=== PATIENT | male | born 1950 | race Caucasian/White ===

== ENCOUNTER → 2021-02-11 07:49 | Outpatient (CLI) | payer MEDICARE, SELFPAY ==
[2021-02-11 08:03] LABS: Basophils % 0.7 % (0.1-2.0); Eosinophils # 0.4 K/mm3 (0.0-0.4); Eosinophils % 5.9 % (0.1-12.0); Hematocrit 46.1 % (42.0-52.0); Hemoglobin 15.8 g/dL (14.1-18.0); Lymphocytes # 1.6 K/mm3 (0.7-4.5); Lymphocytes % 25.2 % (10-50); Mean Corpuscular HGB Conc 34.4 g/dL (31.8-35.4); Mean Corpuscular Hemoglobin 30.2 pg (27.0-31.2); Mean Platelet Volume 8.8 fl (7.4-10.4); Monocytes # 0.5 K/mm3 (0.1-1.0); Monocytes % 7.6 % (1.7-9.3); Neutrophils # 3.8 K/mm3 (1.8-7.8); Neutrophils % 60.6 % (37.0-80.0); Platelet Count 169 K/mm3 (142-424); Red Blood Count 5.24 M/mm3 (4.60-6.20); Red Cell Distribution Width 15.2 % (11.5-17.5); White Blood Count 6.3 K/mm3 (4.8-10.8)
[2021-02-11 08:22] LABS: Hemoglobin A1C 5.7 % (4.0-6.0)
[2021-02-11 08:43] LABS: Chloride 103 mmol/L (98-107)
[2021-02-11 08:44] LABS: Potassium 4.9 mmoL/L (3.5-5.1); Sodium 143 mmol/L (136-145)
[2021-02-11 08:46] LABS: Alanine Aminotransferase 34 U/L (12-78); Anion Gap 14.9 mEq/L (5-15); Aspartate Amino Transferase 35 U/L (17-59); Blood Urea Nitrogen 12 mg/dl (9-20); Carbon Dioxide 30 mmol/L (22.0-30.0); Estimated Glomerular Filt Rate 74 ml/min (>60); GFR (African American) 90 ML/MIN (>60)
[2021-02-11 08:47] LABS: Albumin Level 4.3 g/dl (3.5-5.0); Albumin/Globulin Ratio 1.7 (1.1-1.8); Alkaline Phosphatase 119 U/L (38-126); Bilirubin,Total 0.5 mg/dl (0.2-1.3); Calcium 9.5 mg/dl (8.4-10.2); Chol/HDL Ratio 3.7 (1-3.5); Cholesterol 146 mg/dl (140-200); Globulin 2.5 g/dL (1.3-3.2); Glucose 120 mg/dl (74-100); HDL Cholesterol 39 mg/dl (40-60); Total Protein,Serum 6.8 g/dl (6.3-8.2); Triglycerides 290 mg/dl (30-150); VLDL Cholesterol 58 mg/dL (0-40)
[2021-02-11 08:58] LABS: Direct LDL Cholesterol 64.95 mg/dL (100-129)
== END ==
PROVIDERS: Visit Provider Nurse Practitioner Family
DX: Z01.89 Encounter for other specified special examinations (principal); E11.9 Type 2 diabetes mellitus without complications; Z79.84 Long term (current) use of oral hypoglycemic drugs
CPT/HCPCS: 36415; 80053; 80061; 83036; 85025

== ENCOUNTER → 2021-08-06 08:12 | Outpatient (CLI) | payer MEDICARE, OTHER, SELFPAY | PROVIDERS: PCP Nurse Practitioner Family; Visit Provider Thoracic Surgery (Cardiothoracic Vascular Surgery) | DX: Z01.812 Encounter for preprocedural laboratory examination (principal); Z11.52 Encounter for screening for COVID-19; M96.89 Other intraoperative and postprocedural complications and disorders of the musculoskeletal system | CPT/HCPCS: C9803; U0003; U0005 ==

== ENCOUNTER → 2021-12-15 07:49 | Outpatient (CLI) | payer MEDICARE, OTHER, SELFPAY ==
[2021-12-15 09:36] LABS: Chloride 103 mmol/L (98-107); Potassium 5.1 mmoL/L (3.5-5.1); Sodium 138 mmol/L (136-145)
[2021-12-15 09:39] LABS: Alanine Aminotransferase 31 U/L (12-78); Albumin/Globulin Ratio 1.8 (1.1-1.8); Alkaline Phosphatase 111 U/L (38-126); Anion Gap 8.1 mEq/L (5-15); Aspartate Amino Transferase 37 U/L (17-59); Bilirubin,Total 0.5 mg/dl (0.2-1.3); Blood Urea Nitrogen 15 mg/dl (9-20); Carbon Dioxide 32 mmol/L (22.0-30.0); Cholesterol 144 mg/dl (140-200); Estimated Glomerular Filt Rate 83 ml/min (>60); GFR (African American) 101 ML/MIN (>60); Globulin 2.2 g/dL (1.3-3.2); Total Protein,Serum 6.2 g/dl (6.3-8.2); Triglycerides 273 mg/dl (30-150); VLDL Cholesterol 55 mg/dL (0-40)
[2021-12-15 09:40] LABS: Calcium 9.5 mg/dl (8.4-10.2); Chol/HDL Ratio 4.1 (1-3.5); Glucose 123 mg/dl (74-100); HDL Cholesterol 35 mg/dl (40-60)
[2021-12-15 09:50] LABS: Direct LDL Cholesterol 59.85 mg/dL (100-129)
== END ==
PROVIDERS: PCP Nurse Practitioner Family; Visit Provider Internal Medicine Cardiovascular Disease
DX: I25.10 Atherosclerotic heart disease of native coronary artery without angina pectoris (principal)
CPT/HCPCS: 36415; 80053; 80061

== ENCOUNTER 2024-04-15 09:07 | Day surgery (SDC) | payer MEDICARE, OTHER, SELFPAY ==
[2024-04-09 13:37] VITALS: BMI 29.2
[2024-04-15 10:08] VITALS: BP 120/78; PULSE 97; RESP 16; TEMP 36.7; O2SAT 97
[2024-04-15 10:29] VITALS: O2SAT 95
--- NOTE | 2024-04-15 10:31 | P.PNANES_ITS ---
[facility] Disclaimer: The information contained in this section may have been updated after the patient was seen, as this information can be updated by other users. Medical History Pre-diabetes Hyperlipemia Hypertension Surgical History Hx of heart artery stent Hx of CABG Family History Other Family history of myocardial infarction Social History Smoking Status: Former smoker alcohol intake: current alcohol intake frequency: holidays/special occasions only substance use type: denies use current occupational status: retired Travel in the last 8 weeks: None household members: spouse housing: house [facility] Anesthesia Checklist Patient Identification Patient Identification: Arm Band and Verbal (Name & ) Structural Data Admitted From: Home Planned Operative Procedure/s: Colonoscopy Consent for Planned Operative Procedure(s) Verified: Yes Verified Documents: Surgical Consent and History and Physical NPO Status Verified Time NPO: 00:00 Additional verifications Anesthesia Reactions: No Airway Assessment Mallampati Score:: Class III C-Spine Mobility Assessed: Yes TMJ Mobility Assessed: Yes Dentition: Poor Dentition Neurological Assessment Level of Consciousness: Awake Hx Seizures: No Numbness or tingling in extremities: No Anesthesia Plan Anesthesia Risk discussed: Yes Anesthesia Plan: Verified ASA Class: III Anesthesia Type: MAC
--- NOTE | 2024-04-15 10:34 | P.HP_ITS ---
History of Present Illness *Admission Date: 04/15/24 *Reason for visit:: Screening *History of present illness: Mr. Marshall is a 74-year-old gentleman who is here for screening for colon cancer. His last colonoscopy was 10 years ago.. The examination is deemed medically necessary for colonoscopy. The patient has been seen, interviewed and examined prior to the procedure by both myself and the anesthesia provider. [facility] Disclaimer: The information contained in this section may have been updated after the patient was seen, as this information can be updated by other users. Medical History Pre-diabetes Hyperlipemia Hypertension Surgical History Hx of heart artery stent Hx of CABG Family History Other Family history of myocardial infarction Social History Smoking Status: Former smoker alcohol intake: current alcohol intake frequency: holidays/special occasions only substance use type: denies use current occupational status: retired Travel in the last 8 weeks: None household members: spouse housing: house Other Medical History Have you received the Pneumonia Vaccine: Yes Review of Systems Review of Systems Review of systems (narrative): Negative *Cardiovascular Comments: Negative *Gastrointestinal Comments: Negative *Genitourinary Comments: Negative *Musculoskeletal Comments: Negative *Neurologic Comments: Negative Meds Home Medications and Allergies Home Medications ?Medication ?Instructions ?Recorded ?Confirmed ?Type allopurinol 100 mg tablet 100 mg PO DAILY 02/26/21 04/15/24 History aspirin 81 mg tablet,delayed 81 mg PO DAILY 02/26/21 04/15/24 History release metoprolol tartrate 75 mg tablet 50 mg PO BID 02/26/21 04/15/24 History rosuvastatin 40 mg tablet 40 mg PO DAILY 02/26/21 04/15/24 History tamsulosin 0.4 mg capsule 0.4 mg PO DAILY 02/26/21 04/15/24 History metformin 500 mg tablet,extended See Rx Instructions .Route 12/03/21 04/15/24 Rx release 24 hr .COMPLEX #90 tabs New Prescriptions to Start Prescriptions: Allergies Allergy/AdvReac Type Severity Reaction Status Date / Time No Known Allergies Allergy Verified 04/15/24 10:04 Exam Data for Last 24 hours Vital signs and Labs for Last 24 Hours: Temp Pulse Resp BP Pulse Ox O2 Del Method O2 Flow Rate 98.1 F 97 H 16 120/78 97 Nasal Cannula 5 04/15/24 10:08 04/15/24 10:08 04/15/24 10:08 04/15/24 10:08 04/15/24 10:08 04/15/24 10:29 04/15/24 10:29 *Routine HEENT Exam Head: Present normocephalic Eye: Present EOMI and PERRL ENT: Present mucous membranes moist *Routine Neck Exam Neck: Present supple *Routine Respiratory Exam Respiratory: Present CTA bilaterally *Routine Cardiovascular Exam Cardiovascular: Present RRR *Routine Abdominal Exam Abdominal: Present soft and normoactive bowel sounds; Absent tenderness *Routine Rectal Exam Rectal:: deferred *Routine Genitalia Exam Genitalia:: deferred *Routine Extremities Exam Extremities: Absent cyanosis, clubbing or edema *Routine Skin Exam Skin: Present warm; Absent rash *Routine Neurological Exam Neurological: Present alert and oriented X3 Assessment and Plan *Assessment and plan (1) Screening for colon cancer: Status: Acute Category: Medical Code(s): Z12.11 - Encounter for screening for malignant neoplasm of colon Plan A/P: 1. Screening for colon cancer is the preprocedural diagnosis. The patient will be anesthetized/sedated using MAC sedation. The patient has been seen and examined. Cardiac and lung assessment prior to the examination is stable. Proceed with planned colonoscopy
--- NOTE | 2024-04-15 10:41 | HMH.PROCNOTE ---
[facility] Procedure Note Date: 04/15/24 Time: 11:12 Procedure Note:: Colonoscopy Procedure Report: Colonoscopy with snare cautery, Endo Clip and cold snare polypectomy Endoscopist: Win Vera II, MD Referring physician: MARY Veloz Date of Procedure: April 15, 2024 Equipment: Olympus 190 variable stiffness pediatric colonoscope Sedation: MAC sedation Indication: Mr. Marshall is a 73-year-old gentleman who is here for screening colonoscopy. His last colonoscopy was more than 10 years ago. He reports no abdominal pain, weight loss, change in his bowel habits or rectal bleeding. He reports no family history of colon cancer. Procedure: Prior to the procedure, a history and physical exam was performed, and patient's medications and allergies were reviewed. The risks, benefits and alternatives of the sedation and procedure were discussed with the patient. All questions were answered and informed consent was obtained. The patient was brought to the procedure room. Patient identification and proposed procedure were verified by the physician and the nurse. The patient was placed in a left lateral decubitus position and the scope was passed under direct vision. Throughout the procedure, the patient's blood pressure, pulse, and oxygen saturations were monitored continuously. The colonoscopy was accomplished without difficulty. The patient tolerated the procedure well. Findings: On digital rectal examination there was normal rectal tone. There were no external hemorrhoids. The prostate was slightly enlarged 2-3+, smooth, soft, symmetric without nodules. The colonoscope was introduced through the anal canal to the rectum and advanced to the cecum. The ileocecal valve and appendiceal orifice were identified. The scope was advanced a short distance into the ileum which appeared grossly normal. The scope was then withdrawn into the colon. There were a total of 10 polyps (cecum x 2 (3 and 6 mm), transverse x 1 (5 mm), descending x 4 (4, 5, 5 and 6 mm) and sigmoid x 2 (at 27 cm from pectinate a 21 to 22 mm pedunculated polyp and at 20 cm from pectinate, 11 mm pedunculated polyp). The smaller proximal polyps were removed via cold snare polypectomy. The 2 sigmoid polyps were removed via snare cautery. Because of the thickened stalcks and potential for post polypectomy bleeding, 2 endoclips were placed over the polypectomy stalk of the proximal sigmoid polyp and 1 Endo Clip was placed over the stalk of the distal sigmoid polyp. There were scattered diverticuli throughout the descending and sigmoid colon (LEFT colon). The rectum itself was normal. Upon retroflexion within the rectum there were grade 2 internal hemorrhoids. The preparation was excellent throughout with Roma Preparation Score of 9. The cecal time was 19 minutes. Impression: 1. 21-22 mm pedunculated sigmoid polyp (at 27 cm from pectinate line) 2. 11 mm pedunculated sigmoid polyp (at 20 cm from pectinate line) 3. 7 additional diminutive colonic polyps 4. Left-sided diverticulosis 5. Grade 2 internal hemorrhoids Plan: I will follow-up the polyp histology and recommend repeat surveillance colonoscopy again in 1 to 2 years based upon the pathology. I would encourage psyllium bulking fiber supplementation on a maintenance basis.
[2024-04-15 10:45] LABS: POC Glucose,Bedside 109 (70-110)
[2024-04-15 11:13] VITALS: BP 116/68; PULSE 94; RESP 18; TEMP 36.2; O2SAT 94
[2024-04-15 11:23] VITALS: BP 109/69; PULSE 87; RESP 18; O2SAT 95
[2024-04-15 11:33] VITALS: BP 112/56; PULSE 87; RESP 18; O2SAT 94
[2024-04-15 11:43] VITALS: BP 129/78; PULSE 83; RESP 18; O2SAT 97
== END 2024-04-15 11:43 | disposition home or self-care (01) ==
PROVIDERS: PCP Nurse Practitioner Family; Visit Provider Internal Medicine Gastroenterology
PROC: 0DJD8ZZ Inspection of Lower Intestinal Tract, Via Natural or Artificial Opening Endoscopic (ICD-10-PCS; CPT 45378; principal; 2024-04-15 11:00)
DX: K63.5 Polyp of colon (principal); K57.30 Diverticulosis of large intestine without perforation or abscess without bleeding; K64.1 Second degree hemorrhoids; Z12.11 Encounter for screening for malignant neoplasm of colon; R73.03 Prediabetes
CPT/HCPCS: 45385; 82962; 88305

== ENCOUNTER 2025-05-15 07:04 | Outpatient (CLI) | payer MEDICARE, OTHER, SELFPAY ==
--- OUTSIDE RECORDS SUMMARY | 2025-04-17 09:32 | XMS_ITS | Encounter Summary ---
Author Organization Healthcare Address [address] [place] [address] Care Team Providers Care Alcoholism Worker Name Role Phone Mihir Abdalla MD Unavailable [phone] Mart Jackson APRN Primary Care Provider [phone] Reason for Referral * Imaging (Routine) - Closed Specialty Diagnoses / Procedures Referred By Nette guerrero Referred To Contact Radiology Diagnoses Elevated prostate specific antigen (PSA) Procedures MR Prostate w and wo IV Contrast Silver Esparza MD [address] [address] Phone: tel: fax: Referral ID Status Reason Start Date Expiration Date Visits Re quested Visits Authorized [id number] Closed 02/27/2025 08/29/2026 1 1 Reason for Visit * Imaging (Routine) - Closed Specialty Diagnoses / Procedures Referred By Nette guerrero Referred To Contact Radiology Diagnoses Elevated prostate specific antigen (PSA) Procedures MR Prostate w and wo IV Contrast Silver Esparza MD [address] [address] Phone: tel: fax: Referral ID Status Reason Start Date Expiration Date Visits Re quested Visits Authorized [id number] Closed 02/27/2025 08/29/2026 1 1 Encounter Details Date Type Department Care Team (Latest Contact Info) Description 04/17/2025 10:32 AM EDT - 04/17/2025 11:59 PM EDT Hospital Encounter [facility] [address] [place] [address] Elevated prostate specific antigen (PSA) Discharge Disposition: Home or Self Care Social History Tobacco Use Types Packs/Day Years Used Date Smoking Tobacco: Former Cigarettes 2.5 50 0 02/11/1970 - 02/12/2020 Smokeless Tobacco: Never Alcohol Use Standard Drinks/Week Comments Yes 0 (1 standard drink = 0.6 oz pur e alcohol) Couple bourbons a week Sex and Gender Information Value Date Recorded Sex Assigned at Male 07/08/2021 8:58 AM EST Legal Sex Male 7:53 PM EDT Gender Identity Male 07/08/2021 8:58 AM EST Sexual Orientation Straight 07/08/2021 8: 58 AM EST Occupation Industry Job Start Date Job End Date retired Not on file Not on file Not on file documented as of this encounter Medications at Time of Discharge allopurinol (Zyloprim) 100 MG tablet 1 (one) time each day. 01/30/2020 aspirin 81 MG chewable tablet Chew 81 mg 1 (one) time each day. metFORMIN (Glucophage) 500 MG tablet Take 500 mg by mouth 1 (one) time each day. Multiple Vitamin (MULTIVITAMINS PO) 1 (one) time each day. 01/30/2020 oxyCODONE (Roxicodone) 5 MG immediate release tablet Take 1 tablet (5 mg total) by mouth every 4 (four) hours if needed for severe pain for up to 18 doses. 18 tablet 08/12/2021 rosuvastatin (Crestor) 40 MG tablet 1 (one) time each day. 01/30/2020 tamsulosin (Flomax) 0.4 MG 24 hr capsule TAKE 1 CAPSULE Daily 03/10/2020 documented as of this encounter Plan of Treatment Not on file documented as of this encounter Procedures Procedure Name Priority Date/Time Associated Diagnosis Comments MR PROSTATE W AND WO IV CONTRAST Routine 04/17/2025 12:16 PM EDT Elevated prostate specific antigen (PSA) documented in this encounter Results * MR Prostate w and wo IV Contrast (04/17/2025 12:16 PM EDT) Anatomical Region Laterality Modality Abdomen Magnetic Resonan ce Impressions 04/17/2025 4:18 PM EDT Overall PI-RADS category: 4. A 14 mm lesion in the right apex anterior peripheral zone. CRITICAL RESULT: No. COMMUNICATION: Per this written report. PI-RADSR v2.1 Assessment Categories ----- PIRADS 1 Very low (clinically significant cancer is highly unlikely to be present) PIRADS 2 Low (clinically significant cancer is unlikely to be present) PIRADS 3 Intermediate (the presence of clinically significant cancer is equivocal) PIRADS 4 High (clinically significant cancer is likely to be present) PIRADS 5 Very high (clinically significant cancer is highly likely to be present) Preliminary report signed by Sunny Evangelista DO on 04/17/2025 3:40 PM By electronically signing this report, I, the attending physician, attest that I have personally reviewed the images/data for the above examination(s) and agree with the final edited report. Drafted by Sunny Evangelista DO on 04/17/2025 1:19 PM Final report signed by Miryam De MD on 04/17/2025 4:18 PM Narrative 04/17/2025 4:18 PM EDT CLINICAL INDICATION: Elevated PSA. PSA reportedly 6.8. TECHNIQUE: Multiplanar, multisequence imaging of the pelvis in accordance with PI-RADS recommendations before and after intravenous administration of mL Gadavist in the left antecubital fossa at 2.0 ml/sec on a 3.0 T platform using a 18-channel external phased array coil. Dedicated three-plane small FOV ROMIE T2; axial diffusion weighted imaging with b-values 50 and 800 s/mm2 used to generate calculated z=6213 s/mm2 and ADC map; and an acquired high b =1400 s/mm2; axial 3D dynamic contrast-enhanced [id number] imaging with <10 sec temporal resolution were acquired using 3 mm slice thickness in addition to full-pelvis pre contrast T1 ROMIE and post-contrast axial and coronal fat suppressed 3D Gradient echo T1-weighted imaging. Advanced 3D workstation manipulation and review of the data set was performed by the interpreting physician, at an independent workstation, to further define anatomy and possible pathology. Images of areas of interest were created utilizing various techniques. These images were saved and transferred to PACS if significant. COMPARISON: MR prostate 02/17/2025, which is severely degraded due to motion and rectal contrast FINDINGS: Size: 4.5 x 2.9 x 3.2 cm with a volume of 18.8 cubic cm PSA Density: 0.31 Quality: Adequate, mild geometric distortion on diffusion-weighted imaging from rectal distention does not compromise diagnostic confidence Hemorrhage: No Peripheral zone: Heterogeneous with hypointense T2 signal likely representing confluent prostatitis. Focal finding as below. Transition zone: Mild heterogeneity with typical and atypical BPH nodules. No focal finding. Lesion #1: Location: right anterior peripheral zone just LATERAL to the anterior fibromuscular stroma on series 5 image 26, measuring 14 mm. T2: Moderately hypointense, circumscribed and possibly lenticular without extraprostatic extension T2 PI-RADS category: 4 DWI: Markedly hyperintense on high b-value DWI and markedly hypointense on ADC without extraprostatic extension DWI PI-RADS category: 4 DCE: Focal early enhancement, positive Prostate margin: None Lesion overall PI-RADS category: 4 Neurovascular bundles: Not involved Seminal Vesicles: Not involved Lymph Nodes: No lymphadenopathy. Bones: Heterogeneous and predominantly fat replaced bone marrow. Other pelvic organs: Colonic diverticulosis. Normal bladder wall. Procedure Note Miryam De MD - 04/17/2025 CLINICAL INDICATION: Elevated PSA. PSA reportedly 6.8. TECHNIQUE: Multiplanar, multisequence imaging of the pelvis in accordance withPI-RADS recommendations before and after intravenous administration of mLGadavist in the left antecubital fossa at 2.0 ml/sec on a 3.0 T platformusing a 18-channel external phased array coil. Dedicated three-plane smallFOV ROMIE T2; axial diffusion weighted imaging with b-values 50 and 800s/mm2 used to generate calculated f=9583 s/mm2 and ADC map; and anacquired high b =1400 s/mm2; axial 3D dynamic contrast-enhanced [id number] with <10 sec temporal resolution were acquired using 3 mm slicethickness in addition to full-pelvis pre contrast T1 ROMIE and post- contrastaxial and coronal fat suppressed 3D Gradient echo T1-weighted imaging. Advanced 3D workstation manipulation and review of the data set wasperformed by the interpreting physician, at an independent workstation, tofurther define anatomy and possible pathology. Images of areas of interestwere created utilizing various techniques. These images were saved andtransferred to PACS if significant. COMPARISON: MR prostate 02/17/2025, which is severely degraded due to motion and rectalcontrast FINDINGS: Size: 4.5 x 2.9 x 3.2 cm with a volume of 18.8 cubic cm PSA Density: 0.31 Quality: Adequate, mild geometric distortion on diffusion-weighted imagingfrom rectal distention does not compromise diagnostic confidence Hemorrhage: No Peripheral zone: Heterogeneous with hypointense T2 signal likelyrepresenting confluent prostatitis. Focal finding as below. Transition zone: Mild heterogeneity with typical and atypical BPHnodules. No focal finding. Lesion #1: Location: right anterior peripheral zone just LATERAL to the anteriorfibromuscular stroma on series 5 image 26, measuring 14 mm. T2: Moderately hypointense, circumscribed and possibly lenticular withoutextraprostatic extension T2 PI-RADS category: 4 DWI: Markedly hyperintense on high b-value DWI and markedly hypointense onADC without extraprostatic extension DWI PI-RADS category: 4 DCE: Focal early enhancement, positive Prostate margin: None Lesion overall PI-RADS category: 4 Neurovascular bundles: Not involved Seminal Vesicles: Not involved Lymph Nodes: No lymphadenopathy. Bones: Heterogeneous and predominantly fat replaced bone marrow. Other pelvic organs: Colonic diverticulosis. Normal bladder wall. IMPRESSION: Overall PI-RADS category: 4. A 14 mm lesion in the right apex anteriorperipheral zone. CRITICAL RESULT: No. COMMUNICATION: Per this written report. PI-RADSR v2.1 Assessment Categories ----- PIRADS 1 Very low (clinically significant cancer is highly unlikely to bepresent) PIRADS 2 Low (clinically significant cancer is unlikely to be present) PIRADS 3 Intermediate (the presence of clinically significant cancer isequivocal) PIRADS 4 High (clinically significant cancer is likely to be present) PIRADS 5 Very high (clinically significant cancer is highly likely to bepresent) Preliminary report signed by Sunny Evangelista DO on 04/17/2025 3:40 PM By electronically signing this report, I, the attending physician, attestthat I have personally reviewed the images/data for the aboveexamination(s) and agree with the final edited report. Drafted by Sunny Evangelista DO on 04/17/2025 1:19 PM Final report signed by Miryam De MD on 04/17/2025 4:18 PM us Silver Esparza MD IMG MRI PROCEDURES Final Res ult documented in this encounter Visit Diagnoses Diagnosis Elevated prostate specific antigen (PSA) documented in this encounter Administered Medications Inactive Administered Medications - up to 3 most recent administrations Medication Order MAR Action Action Date Dose Rate Site gadobutrol (Gadavist) injection 9.3 mL 9.3 mL (0.1 mL/kg 93 kg Order-specific weight), Intravenous, Once in imaging, 1 dose, Starting on Courtney 04/17/25 at 1057, Until Courtney 04/17/25 at 1216, Routine, Imaging Protocol Orders Given 04/17/2025 12:16 PM EDT 9.3 mL Right Antecubital documented in this encounter Additional Health Concerns Assessment Noted Time A fall risk assessment has been complete d for the patient 08/19/2021 9:10 AM EST documented as of this encounter Care Teams Alcoholism Worker Relationship Specialty Start Date End Date Mart Jackson APRN [address] [place] [address] PCP - General 08/11/21 Mihir Abdalla [facility] [place] [address] Referring Physician Cardiology 04/01/21 documented as of this encounter
--- OUTSIDE RECORDS SUMMARY | 2025-05-15 07:07 | XMS_ITS | Data Portability ---
Author Organization [facility] Address [address] [place] [address] Assessment Encounter Date Assessment Date Assessment LastModified by Organization Details LastModified Time 12/06/2024 12/06/2024 Patient presente d to office today for their Medicare Annual Wellness Visit. Education was provided on healthy nutrition, including a diet rich in fruits and vegetables, minimizing simple carbohydrates, salt, and saturated fats. Encouraged regular cardiovascular exercise such as walking at least 30 minutes daily, 5 times per week. Emphasized preventive health measures and educated pt on fall prevention and community-based lifestyle interventions to help reduce health risks and promote healthy living. Medicare Preventive Services Check List reviewed and printed for patient. [email or web address] Not available 12/06/2024 10:39:47 Plan of Treatment Reminders Order Date Submit Date Provider Last Modified By Organization Details Last Modified Time Details Appointments None recorded. Lab HbA1c (hemoglobin A1c), blood 2024 025 [facility], [address], Tobias [address], [place], [address], 11:07:43 CMP, serum or plasma 2024 025 [facility], [address], [place] [address], [place], [address], 5 11:07:40 CBC w/ auto diff 2024 025 [facility], [address], [place] [address], [place], [address], 5 11:07:40 microalbumi n/creatinin e, mass ratio, urine 2024 025 [facility], [address], [place] F, [place], [address], 5 11:07:42 lipid panel, serum 2024 025 [facility], [address], [place] [address], [place], [address], 5 11:07:41 PSA, serum or plasma 2024 025 [facility], [address], [place]ias [address], [place], [address], 5 11:07:43 hepatitis B surface Ab, qualitative , serum 2024 025 [facility], [address], Tobias F, [place], [address], 5 11:07:44 Hepatitis C IgG Ab, qual, serum 2024 025 [facility], [address], [place] [address], [place], [address], 5 11:07:42 HbA1c (hemoglobin A1c), blood 2023 024 [facility], [address] [facility], [place], [address], 4 15:09:17 Referral general surgeon referral - CT pelvis has been ordered at [facility] 2024 025 [facility] , [address], [place], [address], 5 14:48:31 Procedures None recorded. Surgeries None recorded. Imaging CT, abdomen + pelvis, w/o contrast 2024 025 [facility] ([facility]), [address], [place], [address], 15:00:16 Medication Orders benzonatate 100 mg capsule 2024 025 [facility], [address] [place] [address] [address] [place], [id number], 16:04:34 azithromyci n 250 mg tablet 2024 025 [facility], [address] [place] [address] [address] [place], [id number], 16:04:34 metformin ER 500 mg tablet,exte nded release 24 hr 2023 024 [facility], [address] [place] [address], [address], 15:09:55 Patient TargetsNo targets recorded. Patient Instructions Encounter Date Encounter Id Patient Instructions Last Modified By Organization Details Last Modified Time 03/29/2024 [id number] skin tag removal : care instructions efryman Not available 03/29/2024 15:09:14 12/06/2024 [id number] advance directives: care instructions efryman Not available 12/06/2024 11:02:00 learning about depression efryman Not available 12/06/2024 11:02:00 preventing falls : care instructions efryman Not available 12/06/2024 11:02:00 medicare preventive services guide efryman Not available 12/06/2024 11:02:00 05/12/2025 [id number] body mass index: care instructions efryman Not available 05/12/2025 11:43:28 learning about healthy weight efryman Not available 05/12/2025 11:43:28 Reason for Referral General Surgeon Referral for Left inguinal hernia CT pelvis has been ordered at [facility] Referring Physician: Mart Jackson, Family Medicine, Encounter Date: 05/12/2025 Results Created Date Observation Date Name Description Value Unit Range Abnormal Flag Note LastModifiedBy Organization Detail LastModifiedTime 03/29/20 24 03/29/2024 HbA1c (hemo globi n A1c), blood HbA1C 5.9 % Not Available [address], [address], 03/29/2024 14:07:05 12/07/19 25 12/07/2024 CBC WITH DIFFE RENTI AL/PL ATELE T WBC 5.4 x10e3 /uL 3.4-10 .8 normal Not Available [facility] ([facility]) [address] [place], [address], 12/07/2024 11:07:40 12/07/19 25 12/07/2024 CBC WITH DIFFE RENTI AL/PL ATELE T RBC 5.23 x10e6 /uL 4.14-5 .80 normal Not Available [facility] ([facility]) [address] [place], [address], 12/07/2024 11:07:40 12/07/19 25 12/07/2024 CBC WITH DIFFE RENTI AL/PL ATELE T hemoglobin 12.3 g/dL 13.0-1 7.7 below low normal Not Available [facility] ([facility]) [address] [place], [address], 12/07/2024 11:07:40 12/07/19 25 12/07/2024 CBC WITH DIFFE RENTI AL/PL ATELE T hematocrit 42.4 % 37.5-5 1.0 normal Not Available [facility] ([facility]) [address] [place], [address], 12/07/2024 11:07:40 12/07/19 25 12/07/2024 CBC WITH DIFFE RENTI AL/PL ATELE T MCV 81 fL 79-97 normal Not Available [facility] ([facility]) [address] [place], [address], 12/07/2024 11:07:40 12/07/19 25 12/07/2024 CBC WITH DIFFE RENTI AL/PL ATELE T MCH 23.5 pg 26.6-3 3.0 below low normal Not Available [facility] ([facility]) [address] [facility], [place], [address], 12/07/2024 11:07:40 12/07/19 25 12/07/2024 CBC WITH DIFFE RENTI AL/PL ATELE T MCHC 29.0 g/dL 31.5-3 5.7 below low normal Not Available [facility] ([facility]) [address] [place], [address], 12/07/2024 11:07:40 12/07/19 25 12/07/2024 CBC WITH DIFFE RENTI AL/PL ATELE T RDW 15.9 % 11.6-1 5.4 above high normal Not Available [facility] ([facility]) [address] [place], [address], 12/07/2024 11:07:40 12/07/19 25 12/07/2024 CBC WITH DIFFE RENTI AL/PL ATELE T platelets 225 x10e3 /uL 150-45 0 normal Not Available [facility] ([facility]) [address] [place], [address], 12/07/2024 11:07:40 12/07/19 25 12/07/2024 CBC WITH DIFFE RENTI AL/PL ATELE T neutrophils 58 % not estab. normal Not Available [facility] ([facility]) [address] [place], [address], 12/07/2024 11:07:40 12/07/19 25 12/07/2024 CBC WITH DIFFE RENTI AL/PL ATELE T lymphs 25 % not estab. normal Not Available [facility] ([facility]) [address] [place], [address], 12/07/2024 11:07:40 12/07/19 25 12/07/2024 CBC WITH DIFFE RENTI AL/PL ATELE T monocytes 10 % not estab. normal Not Available [facility] ([facility]) [address] [facility], [place], [address], 12/07/2024 11:07:40 12/07/19 25 12/07/2024 CBC WITH DIFFE RENTI AL/PL ATELE T eos 6 % not estab. normal Not Available [facility] ([facility]) [address] [facility], [place], [address], 12/07/2024 11:07:40 12/07/19 25 12/07/2024 CBC WITH DIFFE RENTI AL/PL ATELE T basos 1 % not estab. normal Not Available [facility] ([facility]) [address] [place], [address], 12/07/2024 11:07:40 12/07/19 25 12/07/2024 CBC WITH DIFFE RENTI AL/PL ATELE T immature cells PHYSICIAN/OPHTHALMOLOGIST Not Available [facility] ([facility]) [address] [place], [address], 12/07/2024 11:07:40 12/07/19 25 12/07/2024 CBC WITH DIFFE RENTI AL/PL ATELE T neutrophils (absolute) 3.2 x10e3 /uL 1.4-7. 0 normal Not Available [facility] ([facility]) [address] [place], [address], 12/07/2024 11:07:40 12/07/19 25 12/07/2024 CBC WITH DIFFE RENTI AL/PL ATELE T lymphs (absolute) 1.4 x10e3 /uL 0.7-3. 1 normal Not Available [facility] ([facility]) [address] [place], [address], 12/07/2024 11:07:40 12/07/19 25 12/07/2024 CBC WITH DIFFE RENTI AL/PL ATELE T monocytes(ab solute) 0.5 x10e3 /uL 0.1-0. 9 normal Not Available [facility] ([facility]) [address] [facility], [place], [address], 12/07/2024 11:07:40 12/07/19 25 12/07/2024 CBC WITH DIFFE RENTI AL/PL ATELE T eos (absolute) 0.3 x10e3 /uL 0.0-0. 4 normal Not Available [facility] ([facility]) [address] [facility], [place], [address], 12/07/2024 11:07:40 12/07/19 25 12/07/2024 CBC WITH DIFFE RENTI AL/PL ATELE T baso (absolute) 0.0 x10e3 /uL 0.0-0. 2 normal Not Available [facility] ([facility]) [address] [facility], [place], [address], 12/07/2024 11:07:40 12/07/19 25 12/07/2024 CBC WITH DIFFE RENTI AL/PL ATELE T immature granulocytes 0 % not estab. Not Available [facility] ([facility]) [address] [facility], [place], [address], 12/07/2024 11:07:40 12/07/19 25 12/07/2024 CBC WITH DIFFE RENTI AL/PL ATELE T immature grans (abs) 0.0 x10e3 /uL 0.0-0. 1 Not Available [facility] ([facility]) [address] [place], [address], 12/07/2024 11:07:40 12/07/19 25 12/07/2024 CBC WITH DIFFE RENTI AL/PL ATELE T NRBC PHYSICIAN/OPHTHALMOLOGIST Not Available [facility] ([facility]) [address] [facility], [place], [address], 12/07/2024 11:07:40 12/07/19 25 12/07/2024 CBC WITH DIFFE RENLEON AL/PL ATELE T hematology comments: PHYSICIAN/OPHTHALMOLOGIST Not Available [facility] ([facility]) [address] [facility], [place], [address], 12/07/2024 11:07:40 12/07/19 25 12/07/2024 COMP. METAB OLIC PANEL (14) glucose 83 mg/dL 70-99 normal Not Available [facility] ([facility]) [address] [facility], [place], [address], 12/07/2024 11:07:40 12/07/19 25 12/07/2024 COMP. METAB OLIC PANEL (14) BUN 9 mg/dL 8-27 normal Not Available [facility] ([facility]) [address] [facility], [place], [address], 12/07/2024 11:07:40 12/07/19 25 12/07/2024 COMP. METAB OLIC PANEL (14) creatinine 0.90 mg/dL 0.76-1 .27 normal Not Available [facility] ([facility]) [address] [facility], [place], [address], 12/07/2024 11:07:40 12/07/19 25 12/07/2024 COMP. METAB OLIC PANEL (14) eGFR 90 mL/mi n/1.7 3 >59 normal Not Available [facility] ([facility]) [address] [place], [address], 12/07/2024 11:07:40 12/07/19 25 12/07/2024 COMP. METAB OLIC PANEL (14) BUN/creatini ne ratio 10 10-24 normal Not Available [facility] ([facility]) [address] [facility], [place], [address], 12/07/2024 11:07:40 12/07/19 25 12/07/2024 COMP. METAB OLIC PANEL (14) sodium 141 mmol/ L 134-14 4 normal Not Available [facility] ([facility]) [address] [place], [address], 12/07/2024 11:07:40 12/07/19 25 12/07/2024 COMP. METAB OLIC PANEL (14) potassium 4.5 mmol/ L 3.5-5. 2 normal Not Available [facility] ([facility]) [address] [place], [address], 12/07/2024 11:07:40 12/07/19 25 12/07/2024 COMP. METAB OLIC PANEL (14) chloride 103 mmol/ L 96-106 normal Not Available [facility] ([facility]) [address] [place], [address], 12/07/2024 11:07:40 12/07/19 25 12/07/2024 COMP. METAB OLIC PANEL (14) carbon dioxide, total 23 mmol/ L 20-29 normal Not Available [facility] ([facility]) [address] [place], [address], 12/07/2024 11:07:40 12/07/19 25 12/07/2024 COMP. METAB OLIC PANEL (14) calcium 9.4 mg/dL 8.6-10 .2 normal Not Available [facility] ([facility]) [address] [facility] [place] [place], [address], 12/07/2024 11:07:40 12/07/19 25 12/07/2024 COMP. METAB OLIC PANEL (14) protein, total 6.7 g/dL 6.0-8. 5 normal Not Available [facility] ([facility]) [address] [facility] [place], [address], 12/07/2024 11:07:40 12/07/19 25 12/07/2024 COMP. METAB OLIC PANEL (14) albumin 4.5 g/dL 3.8-4. 8 normal Not Available [facility] ([facility]) [address] [facility] [place] [place], [address], 12/07/2024 11:07:40 12/07/19 25 12/07/2024 COMP. METAB OLIC PANEL (14) globulin, total 2.2 g/dL 1.5-4. 5 Not Available [facility] ([facility]) [address] [facility] [place] [place], [address], 12/07/2024 11:07:40 12/07/19 25 12/07/2024 COMP. METAB OLIC PANEL (14) bilirubin, total 0.3 mg/dL 0.0-1. 2 normal Not Available [facility] ([facility]) [address] [facility] [place] [place], [address], 12/07/2024 11:07:40 12/07/19 25 12/07/2024 COMP. METAB OLIC PANEL (14) alkaline phosphatase 123 IU/L 44-121 above high normal Not Available [facility] ([facility]) [address] [facility] [place], [address], 12/07/2024 11:07:40 12/07/19 25 12/07/2024 COMP. METAB OLIC PANEL (14) AST (SGOT) 20 IU/L 0-40 normal Not Available [facility] ([facility]) [address] [facility] [place] [place], [address], 12/07/2024 11:07:40 12/07/19 25 12/07/2024 COMP. METAB OLIC PANEL (14) ALT (SGPT) 17 IU/L 0-44 normal Not Available [facility] ([facility]) [address] [facility] [place] [place], [address], 12/07/2024 11:07:40 12/07/19 25 12/07/2024 LIPID PANEL cholesterol, total 132 mg/dL 100-19 9 normal Not Available [facility] ([facility]) [address] [facility] [place], [address], 12/07/2024 11:07:41 12/07/19 25 12/07/2024 LIPID PANEL triglyceride s 126 mg/dL 0-149 normal Not Available [facility] ([facility]) [address] [place], [address], 12/07/2024 11:07:41 12/07/19 25 12/07/2024 LIPID PANEL HDL cholesterol 46 mg/dL >39 normal Not Available [facility] ([facility]) [address] [place], [address], 12/07/2024 11:07:41 12/07/19 25 12/07/2024 LIPID PANEL VLDL cholesterol bharath 22 mg/dL 5-40 Not Available [facility] ([facility]) [address] [place], [address], 12/07/2024 11:07:41 12/07/19 25 12/07/2024 LIPID PANEL LDL chol calc ([facility]) 64 mg/dL 0-99 Not Available [facility] ([facility]) [address] [place], [address], 12/07/2024 11:07:41 12/07/19 25 12/07/2024 LIPID PANEL LDL calc comment: PHYSICIAN/OPHTHALMOLOGIST Not Available [facility] ([facility]) [address] [place], [address], 12/07/2024 11:07:41 12/07/19 25 12/07/2024 ALBUM IN/CR EAT RATIO , RANDO M UR creatinine, urine 34.2 mg/dL not estab. normal Not Available [facility] ([facility]) [address] [place], [address], 12/07/2024 11:07:42 12/07/19 25 12/07/2024 ALBUM IN/CR EAT RATIO , RANDO M UR albumin, urine <3.0 ug/mL not estab. Not Available [facility] ([facility] [address] [facility] [place], [address], 12/07/2024 11:07:42 12/07/19 25 12/07/2024 ALBUM IN/CR EAT RATIO , ELLIOTT Arauz UR alb/creat ratio <9 mg/g_ creat 0-29 Kristin l: 0 - 29 Moder ately incre ased: 30 - 300 Sever shaka incre ased: >300 Not Available [facility] ([facility]) [address] [facility], [place], [address], 12/07/2024 11:07:42 12/07/19 25 12/07/2024 HCV ANTIB KANDIS RFX TO QUANT PCR HCV Ab Non Reacti ve non reacti ve Not Available [facility] ([facility]) [address] [facility], [place], [address], 12/07/2024 11:07:42 12/07/19 25 12/07/2024 HCV ANTIB KANDIS RFX TO QUANT PCR interpretati on: Commen t Not infec perla with HCV unles s early or acute infec tion is suspe cted (whic h may be delay ed in an immun ocomp romis ed indiv idual ), or other evide nce exist s to indic ate HCV infec tion. Not Available [facility] ([facility]) [address] [facility], [place], [address], 12/07/2024 11:07:42 12/07/1912/07/2024 PSA TOTAL (REFL EX TO FREE) prostate specific Ag 6.8 NG/mL 0.0-4. 0 above high normal Ana Rosa ECLIA metho dolog y. Accor ding to the Ameri can [employer]rolo g[employer] iatio n, Serum PSA shoul d decre ase and remai n at undet ectab le level s after radic al prost atect vic. The AUA defin es bioch emica l recur rence as an initi al PSA value 0.2 ng/mL or great er follo wed by a subse quent confi rmato ry PSA value 0.2 ng/mL or great er. Value s obtai levon with diffe rent assay metho ds or kits canno t be used inter wade eably . Resul ts canno t be inter prete d as absol flandreau evide nce of the prese nce or absen ce of monica cannon se. Not Available [facility] ([facility]) [address] [place], [address], 12/07/2024 11:07:43 12/07/19 25 12/07/2024 PSA TOTAL (REFL EX TO FREE) PSA, free 0.85 NG/mL n/a Ana Rosa ECLIA metho dolog y. Not Available [facility] ([facility]) [address] [place], [address], 12/07/2024 11:07:43 12/07/1912/07/2024 PSA TOTAL (REFL EX TO FREE) % free PSA 12.5 % The table below lists the proba bilit y of prost ate cance r for men with non-s uspic ious ANTHONY resul ts and total PSA betwe en 4 and 10 ng/mL , by patie nt age (Kylah sydney et al, JUDITH 1998, 279:1 542). % Free PSA 50-64 yr 65-75 yr 0.00- 10.00 % 56% 55% 10.01 -15.0 0% 24% 35% 15.01 -20.0 0% 17% 23% 20.01 -25.0 0% 10% 20% >25.0 0% 5% 9% Pleas e note: Arias richard et al did not make speci fic recom menda tions regar ding the use of perce nt free PSA for any other popul ation of men. Not Available [facility] ([facility]) [address] [facility], [place], [address], 12/07/2024 11:07:43 12/07/19 25 12/07/2024 PSA TOTAL (REFL EX TO FREE) reflex criteria Commen t The perce nt free PSA is perfo rmed on a refle x basis only when the total PSA is betwe en 4.0 and 10.0 ng/mL . Not Available [facility] ([facility]) [address] [facility], [place], [address], 12/07/2024 11:07:43 12/07/19 25 12/07/2024 HEMOG LOBIN A1C hemoglobin A1C 6.6 % 4.8-5. 6 above high normal Predi abete s: 5.7 - 6.4 Diabe conchita: >6.4 Glyce aarti contr ol for adult s with diabe conchita: <7.0 Not Available [facility] ([facility]) [address] [facility], [place], [address], 12/07/2024 11:07:43 12/07/1912/07/2024 HEP B SURFA CE AB, QUAL hep B surface Ab, qual Non Reacti ve Non React tavo: Not immun e to HBV infec tion. Equiv ocal: Unabl e to deter mine if anti- HBs is prese nt at level s consi stent with immun ity. React tavo: Anti- HBs tremayne ntrat ion detec perla at great er than 10 mIU/m L. Indiv idual is consi dered to be immun e to infec tion with HBV. Not Available [facility] ([facility]) [address] [facility], [place], [address], 12/07/2024 11:07:44 12/07/1912/07/2024 PLEAS E NOTE please note Commen t The date and/o r time of colle ction was not indic ated on the requi sitio n as requi red by state and [place] law. The date of recei pt of the speci men was used as the colle ction date if not suppl ied. Not Available [facility] ([facility]) [address] [facility], [place], [address], 12/07/2024 11:07:45 Result Notes None recorded. Problems Name Problem SNOMED Code Status Onset Date Resolution Date Notes Provider Name and Address Organization Details Recorded Time Type 2 diabetes mellitus 71753723 Active Annita weiss, [place] - [facility] 3 11:41:07 Coronary artery bypass grafts x 2 Active Annita weiss, [place] - [facility] 3 11:41:46 Gout 30760091 Active Annita weiss, [place] - [facility] 3 11:42:03 Large prostate 595920037 Active Annita weiss, [place] - [facility] 3 11:42:36 Problem Notes None recorded. Procedures Surgical History Date Name Laterality Status Provider Name and Address Organization Details Recorded Time Advance Care Planning completed Annita Ascencio [place] - [facility] 12/06/2024 10:39:47 Functional Status Assessed completed Annita Ascencio [place] - [facility] 12/06/2024 10:39:47 Skin Tag Removal completed Mart Jackson, [employer] [address], [place], [address], [place] - [facility] 03/29/2024 15:08:39 024 colonoscopy completed Sheryl Camila [place] - [facility] 10/03/2024 16:00:14 open heart surgery completed Efrain parrish Sonu [place] - [facility] 04/20/2023 11:44:28 vasectomy completed Annita Araujoler [place] - [facility] 04/20/2023 11:44:34 Hemorrhoidectomy completed Nicky kennedy [place]u [place] - [facility] 04/20/2023 11:44:42 Cardiac Cath completed Sheryl Camila [place] - [facility] 10/03/2024 15:59:38 Imaging Results None recorded. Procedure Notes None recorded. Medical Equipment None Reported. Allergies Allergen ID Allergen Name Allergen Category Reaction Reaction Severity Criticality Documentation Date Start Date Code Code System Note Provider Name and Address Organization Details Recorded Time 943495 atorvasta tin medicatio n muscle cramps Not available high 04/20/2023 50351 RxNorm Annita weiss, [place] - [facility] 11:38:58 922821 atorvasta tin calcium medicatio n other Not available low 05/12/20252017 89926 RxNorm Not Available sera - External Data Service - prod 5 04:51:40 Medications Name Sig Start Date Stop Date Status Note LastModified by Organization Details LastModified Time amoxicillin 500 mg capsule TAKE ONE CAPSULE BY MOUTH THREE TIMES DAILY -- FINISH ALL MEDICINE -- --TAKE WITH FOOD-- 10/03 completed Not Available Not Available Not Available metformin 500 mg tablet Take 1 tablet twice a day by oral route. 04/20 completed Not Available Not Available Not Available azithromyci n 250 mg tablet TAKE 2 TABLETS BY MOUTH ON DAY 1, THEN TAKE 1 TABLET DAILY ON DAYS 2-5 10/03 completed Not Available Not Available Not Available allopurinol 100 mg tablet Take 1 tablet every day by oral route for 90 days. active Not Available Not Available No t Available sildenafil 100 mg tablet 03/29 completed Not Available Not Available Not Available tamsulosin 0.4 mg capsule Take 1 capsule every day by oral route for 30 days. active Not Available Not Available No t Available benzonatate 100 mg capsule TAKE ONE CAPSULE BY MOUTH TWICE DAILY NEEDED FOR COUGH -SWALLOW WHOLE. DO NOT CRUSH OR CHEW- 10/03 completed Not Available Not Available Not Available dexamethaso ne 4 mg tablet TAKE ONE TABLET BY MOUTH EVERY DAY 10/03 completed Not Available Not Available Not Available metoprolol tartrate 50 mg tablet Take 1 tablet twice a day by oral route for 90 days. active Not Available Not Available No t Available metformin ER 500 mg tablet,exte nded release 24 hr TAKE 1 TABLET DAILY 2024 active Not Available Not Available Not Avai lable povidone-io dine 10 % topical solution 03/29 completed Not Available Not Available Not Available rosuvastati n 40 mg tablet Take 1 tablet every day by oral route for 90 days. active Not Available Not Available No t Available chlorhexidi ne gluconate 0.12 % mouthwash FILL SUPPLIED CUP (1/2 OUNCE); SWISH IN MOUTH FOR 30 SECONDS TWICE DAILY (AFTER BREAKFAST & BEFORE BEDTIME). SWISH THEN EXPEL REMAINDER OR USE DIRECTED 10/03 completed Not Available Not Available Not Available Plenvu 140 gram-9 gram-5.2 gram powder packs AT SIX (6) IN THE EVENING THE EVENING BEFORE TAKE FIRST DOSE FOLLOWED BY 16 OZ OF WATER FOLLOWING INSTRUCTI ONS ON KIT. MORNING OF EXAM TAKE THE SECOND DOSAGE FOLLOWED BY 16 OZ OF WATER . 09/19 completed Not Available Not Available Not Available Vitals Date Recorded Body weight Body temperature Heart rate Oxygen saturation Respiratory rate Pain severity - 0-10 verbal numeric rating [Score] - Reported Systolic And Diastolic Provider Name and Address Organization Details Last Updated DateTime 5 29301.7 g 98 [degF] 80 /min 95 % 18 /min 0 126/78 mm[Hg] Annita Araujoler [place] - [facility] 5 14:45:59 Date Recorded Respiratory rate Body weight Body mass index (BMI) Body height Heart rate Oxygen saturation Body temperature Systolic And Diastolic Provider Name and Address Organization Details Last Updated DateTime 5 18 /min 38540.9 2 g 28.6 kg/m2 175.26 cm 80 /min 98 % 98 [degF] 142/80 mm[Hg] Sheryl Stears [place] - [facility] 5 15:56:27 Date Recorded Body height Body mass index (BMI) Body weight Heart rate Oxygen saturation Respiratory rate Pain severity - 0-10 verbal numeric rating [Score] - Reported Systolic And Diastolic Provider Name and Address Organization Details Last Updated DateTime 5 175.26 cm 29 kg/m2 93896.5 g 67 /min 97 % 18 /min 0 122/72 mm[Hg] Annita Araujoler [place] - [facility] 5 10:51:45 Date Recorded Body weight Body temperature Heart rate Oxygen saturation Pain severity - 0-10 verbal numeric rating [Score] - Reported Respiratory rate Systolic And Diastolic Provider Name and Address Organization Details Last Updated DateTime 4 66585.8 g 98.1 [degF] 78 /min 95 % 0 18 /min 128/74 mm[Hg] Annita Sonu [place] - [facility] 4 14:05:32 Date Recorded Body height Respiratory rate Body mass index (BMI) Body weight Body temperature Oxygen saturation Heart rate Systolic And Diastolic Provider Name and Address Organization Details Last Updated DateTime 5 175.26 cm 18 /min 28.6 kg/m2 18027.9 2 g 97.8 [degF] 96 % 76 /min 146/76 mm[Hg] Sheryl Stears [place] - [facility] 11:05:34 Social History Question Answer Notes LastModified by Organizat ion Details LastModified Time Tobacco Smoking Status Former Smoker Annita Ascencio null, [place] - [facility] 04/20/2023 11:43:25 Do You Have An Advance Directive? Yes Information not available 04/20/2023 Are You Blind Or Do You Have Difficulty Seeing? No Information not available 04/20/2023 What Is Your Level Of Caffeine Consumption? Occasional Information not available 04/20/2023 In The 14 Days Before Symptom Onset, Have You Had Close Contact With A Laboratory-confir med COVID-19 While That Case Was Ill? No Information not available 04/20/2023 In The 14 Days Before Symptom Onset, Have You Had Close Contact With A Person Who Is Under Investigation For COVID-19 While That Person Was Ill? No Information not available 04/20/2023 Have You Been To An Area Known To Be High Risk For COVID-19? No Information not available 04/20/2023 Are You Deaf Or Do You Have Serious Difficulty Hearing? No Information not available 04/20/2023 What Type Of Diet Are You Following? DIABETIC Information not available 04/20/2023 Have You Processed Blood Or Body Fluids From An Ebola Virus Disease Patient Without Appropriate PPE?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
--- OUTSIDE RECORDS SUMMARY | 2025-05-15 07:08 | XMS_ITS | Encounter Summary ---
Author Organization [facility] Address [address] [place] [address] Care Team Providers Care Bench Assembler Operator Name Role Phone Mihir Abdalla MD Unavailable [phone] Mart Jackson APRN Primary Care Provider [phone] Encounter Details Date Type Department Care Team (Latest Contact Info) Description 04/17/2025 Travel Social History Tobacco Use Types Packs/Day Years [...] on file documented as of this encounter Plan of Treatment Not on file documented as of this encounter Visit Diagnoses Not on filedocumented in this encounter Additional Health Concerns Assessment Noted Time A fall risk assessment has been complete d for the patient 08/19/2021 9:10 AM EST documented as of this encounter Care Teams Bench Assembler Operator Relationship Specialty Start Date End Date Mart Jackson APRN [address] [place] [address] PCP - General 08/11/21 [facility] [place] [address] Referring Physician Cardiology 04/01/21 documented as of this encounter
--- OUTSIDE RECORDS SUMMARY | 2025-05-15 07:08 | XMS_ITS | Continuity of Care Document ---
Author Organization [place] [facility] Address [address] [place] [address] Assessment No assessment recorded. Plan of Treatment Reminders Order Date Submit Date Provider Last Modified By Organization Details Last Modified Time Details Appointments None recorded. Lab None recorded. Referral general surgeon referral - CT pelvis has been ordered at [facility] 2024 [facility] , [address], [address], [place], [address], 14:48:31 Procedures None recorded. Surgeries None recorded. Imaging CT, abdomen + pelvis, w/o contrast 2024 [facility] [address], [place], [address], 15:00:16 Medication Orders None recorded. Patient TargetsNo targets recorded. Patient Instructions Encounter Date Encounter Id Patient Instructions Last Modified By Organization Details Last Modified Time 05/12/2025 [id number] body mass index: care instructions efryman Not available 05/12/2025 11:43:28 learning about healthy weight efryman Not available 05/12/2025 11:43:28 Reason for Referral General Surgeon Referral for Left inguinal hernia CT pelvis has been ordered at [facility] Referring Physician: Mart Jackson, Family Medicine, Encounter Date: 05/12/2025 Problems Name Problem SNOMED Code Status Onset Date Resolution Date Notes Provider Name and Address Organization Details Recorded Time Type 2 diabetes mellitus 67505518 Active [facility] - [facility] 3 11:41:07 Coronary artery bypass grafts x 2 Active Annita weiss, [place] - [facility] 3 11:41:46 Gout 55445909 Active Annita weiss, [place] - [facility] 11:42:03 Large prostate 138814206 Active Annita weiss, [place] - [facility] 11:42:36 Problem Notes None recorded. Procedures Surgical History Date Name Laterality Status Provider Name and Address Organization Details Recorded Time Advance Care Planning completed Annita Ascencio [place] - [facility] 12/06/2024 10:39:47 Functional Status Assessed completed Annita Ascencio [place] [facility] 12/06/2024 10:39:47 Skin Tag Removal completed Mart Jackson, JEWELRY CASTING MODEL MAKER APPRENTICE [address], [place], [address], [place] [facility] 03/29/2024 15:08:39 024 colonoscopy completed Sherylbrent Billsnain [place] - [facility] 10/03/2024 16:00:14 open heart surgery completed Efrain Ascencio [place] - [facility] 04/20/2023 11:44:28 vasectomy completed Annita Ascencio [place] [facility] 04/20/2023 11:44:34 Hemorrhoidectomy completed Nicky Ascencio [place] - [facility] 04/20/2023 11:44:42 Cardiac Cath completed Sheryl Billsnain [place] - [facility] 10/03/2024 15:59:38 Imaging Results None recorded. Procedure Notes None recorded. Medical Equipment None Reported. Allergies Allergen ID Allergen Name Allergen Category Reaction Reaction Severity Criticality Documentation Date Start Date Code Code System Note Provider Name and Address Organization Details Recorded Time 345521 atorvasta tin medicatio n muscle cramps Not available high 04/20/2023 92168 RxNorm Annita weiss, [place] - [facility] 11:38:58 659587 atorvasta tin calcium medicatio n other Not available low 05/12/20252017 62164 RxNorm Not Available sera - External Data [...] Available Not Available Vitals Date Recorded Body height Respiratory rate Body mass index (BMI) Body weight Body temperature Oxygen saturation Heart rate Systolic And Diastolic Provider Name and Address Organization Details Last Updated DateTime 5 175.26 cm 18 /min 28.6 kg/m2 40603.9 2 g 97.8 [degF] 96 % 76 /min 146/76 mm[Hg] Sheryl Camila [place] - [facility] 11:05:34 Social History Question Answer Notes LastModified by Organizat ion Details LastModified Time Tobacco Smoking Status Former Smoker Annita Ascencio [place], [place] - [facility] 04/20/2023 11:43:25 Do You [...] Or The Highest Degree You Have Received? [id number] Information not available 05/12/2025 Have There Been Any Changes To Your Family Or Social Situation? No Information no t available 04/20/2023 When Did You Quit Smoking? 1-5yearssince lastcigarette Information not available 04/20/2023 Have You Recently Or Are You Planning To Travel To An Area With Zika Virus? No Information not available 04/20/2023 Do You Have A Medical Power Of Clinical Trial Assistant? No Information not available 05/12/2025 What Was [...] anxious, or unable to sleep at night)? [id number] Information not available 10/03/2024 Do you have [...] Time zoster live 4 completed Not Available [facility] 05/12/2025 10:53:49 Pneumococcal conjugate PCV 13 7 [facility] 05/12/2025 10:53:49 pneumococcal polysaccharide PPV23 8 completed [facility] 05/12/2025 10:53:49 zoster recombinant 9 completed [facility] 05/12/2025 10:53:49 Tdap 9 completed [facility] 05/12/2025 10:53:49 zoster recombinant 9 completed [facility] 05/12/2025 10:53:49 COVID-19, mRNA, LNP-S, PF, 30 mcg/0.3 mL dose 1 completed Not Available [facility] 05/12/2025 10:53:49 COVID-19, mRNA, LNP-S, PF, 30 mcg/0.3 mL dose 1 completed Not Available [facility] 05/12/2025 10:53:49 COVID-19, mRNA, LNP-S, PF, 30 mcg/0.3 mL dose 1 completed Not Available [facility] 05/12/2025 10:53:49 Tdap 5 completed Mart Jackson APRN [facility] [address], [place], [address], [place] [facility] 10/03/2024 16:53:49 Past Encounters Encounter ID Performer Location Encounter Start Date Encounter Closed Date Diagnosis/Indication Diagnosis SNOMED-CT Code Diagnosis ICD10 Code Diagnosis IMO Codes Diagnosis Note [id number] Mart Jackson APRN [facility] [address] [place] [address] 05/12/2025 10:50:48 05/12/2025 11:33:53 Overweight in adulthood with body mass index of 25 or more but less than 30 416374667 E66.3 Z68.28 8818909632 28.6 Pain in male pelvis 8501 640580 9323 R10.20 882545 Left inguinal hernia 236 025185 K40.90 100426 ctreferral to surgeryif symptoms worsen or no improvemen t return or be seen in er Health Concerns Section Related Observation LastModified by Organization Detai ls LastModified Time None Recorded Concern Status LastModified by Organization Details LastModified Time None Recorded Payers Encounter Date Sequence Insurance Name Policy Number Policy Acosta Covered Member ID Acosta Member ID Guarantor Name 05/12/2025 1 [place] Ricardo Marshall [id number] Ricardo Marshall 05/12/2025 2 FOR LIFE ( - MEDICARE SUPPLEMENT) Ricardo Marshall [id number] Ricardo Marshall Notes Date Note Type Note Provider Name and Address Organization Details Recorded Time 05/12/2025 text/html ROS as noted in the [...] time only with certain movements Mart Jackson, JEWELRY CASTING MODEL MAKER APPRENTICE [address], [place], [address], [facility] - [facility] 05/12/2025 13:10:09
--- OUTSIDE RECORDS SUMMARY | 2025-05-15 07:08 | XMS_ITS | Encounter Summary ---
Author Organization [facility] Address [address] [place] [address] Care Team Providers Care Sponge Hooker Name Role Phone Mihir Abdalla MD Unavailable [phone] Mart Jackson APRN Primary Care Provider [phone] Encounter Details Date Type Department Care Team (Latest Contact Info) Description 04/10/2025 Travel Social History Tobacco Use Types Packs/Day [...] documented as of this encounter Care Teams Sponge Hooker Relationship Specialty Start Date End Date Mart Jackson APRN [address] [place] [address] PCP - General 08/11/21 Mihir Abdalla [facility] [place] [address] Referring Physician Cardiology 04/01/21 documented as of this encounter
--- OUTSIDE RECORDS SUMMARY | 2025-05-15 07:08 | XMS_ITS | Clinical Summary ---
Author Organization [facility] Address [address] [place] [address] Care Team Providers Care Manufacturer'S Representative Name Role Phone Mihir Abdalla MD Unavailable [phone] Mart Jackson APRN Primary Care Provider [phone] Allergies Active Allergy Reactions Criticality Noted Date Comments Atorvastatin Other - please docum ent in the comment field Low 03/12/2018 Medications Multiple Vitamin (MULTIVITAMINS PO) 1 (one) time each day. 01/30/2020 Active allopurinol (Zyloprim) 100 MG tablet 1 (one) time each day. 01/30/2020 Active rosuvastatin (Crestor) 40 MG tablet 1 (one) time each day. 01/30/2020 Active tamsulosin (Flomax) 0.4 MG 24 hr capsule TAKE 1 CAPSULE Daily 03/10/2020 Active metFORMIN (Glucophage) 500 MG tablet Take 500 mg by mouth 1 (one) time each day. Active aspirin 81 MG chewable tablet Chew 81 mg 1 (one) time each day. Active metoprolol tartrate 75 MG tablet Take 75 mg by mouth 3 (three) times a day. 60 tablet 2 08/12/2021 Active oxyCODONE (Roxicodone) 5 MG immediate release tablet Take 1 tablet (5 mg total) by mouth every 4 (four) hours if needed for severe pain for up to 18 doses. 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 Nodule of lower lobe of left lung 03/30/2021 COPD (chronic obstructive pulmonary disease) Diabetes 03/10/2020 Body mass index (BMI) of 25.0 to 29.9 01/29/2020 Hyperlipidemia 01/29/2020 Coronary artery disease 01/28/2020 Encounters Date Type Department Care Team Description 04/17/2025 10:32 AM EDT - 04/17/2025 11:59 PM EDT Hospital Encounter [facility] [address] [place] [address] Elevated prostate specific antigen (PSA) Discharge Disposition: Home or Self Care 04/17/2025 Travel 04/10/2025 Travel 02/17/2025 11:41 AM EDT - 02/17/2025 11:59 PM EDT Hospital Encounter [facility] [address] [place] [address] Elevated PSA Discharge Disposition: Home or Self Care 02/17/2025 Travel from Last 3 Months Immunizations Immunization Administration Dates Next Due [facility] COVID-19 Vac cine (Purple Cap) 12+ 04/14/2021,08/12/2020,07/22/2020 Pneumococcal Conjugate PCV 13 09/15/2016 Pneumococcal Polysaccharide PPV23 09/15/2017 Tdap 09/19/2018,06/26/2008 Tetanus Toxoid, Unspecified 06/26/2008 Zoster, live 08/30/2013 Family History Medical History Relation Name Comments COPD Father Diabetes Mother Relation Name Status Comments Father Mother Social History Tobacco Use Types Packs/Day Years [...] file Not on file Not on file Last Filed Vital Signs Vital Sign Reading Time Taken Comments Blood Pressure 138/78 08/19/2021 9:10 AM EST Pulse 82 08/19/2021 9:10 AM EST Temperature 36.6 C (97.8 F) 08/12/2021 11:35 AM EST Respiratory Rate 13 08/12/2021 11:35 AM EST Oxygen Saturation 98% 08/19/2021 9:10 AM EST Inhaled Oxygen Concentration - - Weight 93 kg (205 lb) 02/17/2025 11:56 AM EDT Height 175.3 cm (5' 9 ) 08/19/2021 9:10 AM EST Body Mass Index 30.27 08/19/2021 9:10 AM EST Plan of Treatment Health Maintenance Due Date Last Done Comments [facility]-Depression Screening 1951 [facility]-Hepatitis C Screening 1950 [facility]Medicare Annual Wellness (AWV) 1950 [facility]-Infant/Child/Adol SDOH Screenings 1951 [facility]-Obesity Intervention 1957 Diabetes: Dental Exam 1961 [facility]- SDOH Screenings 1969 [facility]-Adult SDOH Screenings 1969 CT Colonography 1996 Colonoscopy 1996 FIT-DNA 1996 FIT 1996 FOBT 1996 Sigmoidoscopy 1996 [facility]-Colorectal Cancer Screening 1996 [facility]-Lung Cancer Screening 2001 [facility]-RSV Vaccine: 60+ Years o r (1 - Risk 60-74 years 1-dose series) 2011 [facility]-Diabetes: Hemoglobin A1C 07/29/2020 01/30/2020 [id number] Vaccine ( - 2024- season) 2025 04/14/2021, 08/12/2020, 07/22/2020 [facility]-Influenza Vaccine (#1) 2025 [facility]-DTaP,Tdap,and Td Vaccine s (4 - Td or Tdap) 10/03/2034 10/03/2024, 09/19/2018, 06/26/2008 [facility]-Pneumococcal Vaccine: 50 + Years Completed 09/15/2017, 09/15/2016 [facility]-Zoster Vaccines Completed 12/19/2018, 09/19/2018, 08/30/2013 HPV Vaccines Aged Out No longer eligi ble based on patient's age to complete this topic [facility]-HIB Vaccines Aged Out No longer e ligible based on patient's age to complete this topic [facility]-Hepatitis A Vaccines Aged Out No longer eligible based on patient's age to complete this topic [facility]-IPV Vaccines Aged Out No longer e ligible based on patient's age to complete this topic [facility]-Rotavirus Vaccines Aged Out No lo nger eligible based on patient's age to complete this topic Medical Devices Implanted Type Area Hydro Generation Manager Device Identifier Shelf Expiration Date Model / Serial / Lot Screw 3.0mm Ti Lock 18mm - [id number] Implanted:Qty: 1 on 08/11/2021 by Partha Cook MD at [facility]-[id number] .501 .118. 01 / / Description:2 used. 1 explan perla Screw 3.0mm Ti Lock 16mm - [id number] Implanted:Qty: 24 on 08/11/2021 by Partha Cook MD at [facility]-[id number] .501 .116. 01 / / Description:27 used. 3 expla nted Plate H Large Ti Bey Lock 8 Holes - [id number] Implanted:Qty: 1 on 08/11/2021 by Partha Cook MD at [facility]-[id number] 460.02 8 / / Plate Ti Bey Lock Star 6 Holes - [id number] Implanted:Qty: 1 on 08/11/2021 by Partha Cook MD at [facility] [employer] [place]-[id number] 460.03 5 / / Plate Ti Bey Lock Star 12 Holes - [id number] Implanted:Qty: 1 on 08/11/2021 by Partha Cook MD at [facility]-[id number] 460.03 6 / / Explanted Type Area Hydro Generation Manager Device Identifier Shelf Expiration Date Model / Serial / Lot Screw 3.0mm Ti Lock 18mm - [id number] Explanted:Qty: 1 on 08/11/2021 at [facility]-[id number] .501 .118. 01 / / Screw 3.0mm Ti Lock 16mm - [id number] Explanted:Qty: 3 on 08/11/2021 at [facility]-[id number] 04.501 .116. 01 / / Procedures Procedure Name Priority Date/Time Associated Diagnosis Comments MR PROSTATE W AND WO IV CONTRAST Routine 04/17/2025 12:16 PM EDT Elevated prostate specific antigen (PSA) MR PROSTATE W AND WO IV CONTRAST Routine 02/17/2025 1:04 PM EDT Elevated PSA HEMOGLOBIN A1C Routine 01/30/2020 10:32 AM EDT from Last 3 Months or Most Recently Relevant to Health Maintenance Results * MR Prostate w and wo IV Contrast (04/17/2025 12:16 PM EDT) Only the most recent of2 resultswithin the time period is included. Anatomical Region Laterality Modality Abdomen Magnetic Resonan [...] and 800 s/mm2 used to generate calculated o=9480 s/mm2 and ADC map; and an acquired high b =1400 s/mm2; axial 3D dynamic contrast-enhanced [id number] imaging with <10 sec temporal resolution were [...] 50 and 800s/mm2 used to generate calculated i=5703 s/mm2 and ADC map; and anacquired high b =1400 s/mm2; axial 3D dynamic contrast-enhanced [id number] with <10 sec temporal resolution were acquired [...] MD IMG MRI PROCEDURES Final Res ult * (ABNORMAL) Hemoglobin A1c (01/30/2020 10:32 AM EDT) Hemoglobin A1c 6.3(H) 4.7 - 6.0 % SUNQUEST Comment: Glycohemoglobin Reference Range, 0 years and up: 4.7 to 6.0% . HA1C Interpretive Data: Diagnosis of Diabetes: Diabetic > or = 6.5% Pre-diabetic 5.7 to 6.4% Non-diabetic < or = 5.6% . Glycemic Targets for Type I and Type II Diabetics: Non- Adults <7.0% Adults <6.0% Children and Adolescents <7.5% . Source: [place] [employer]. Standards of medical care in diabetes, 2017. Diabetes Care.2017:40 (suppl 1):S1-S135. . HbA1c assay performed by an ion-exchange chromatography method that is certified traceable to the DCCT. 01/30/2020 10:3 2 AM EDT 01/30/2020 12:18 PM EDT Partha Cook MD LAB BLOOD ORDERABLES Final R esult SUNQUEST from Last 3 Months or Most Recently Relevant to Health Maintenance Insurance MEDICARE [facility] Advance Directives * Full Code (Latest Code Status on File) Date Activated Date Inactivated Comments 08/11/2021 11:43 AM 08/12/2021 5:16 PM Question Answer Comments Patient has decision-making capacity? Yes Care Teams Manufacturer'S Representative Relationship Specialty Start Date End Date Mart Jackson APRN [address] [place], [place] [id number] PCP - General 08/11/21 Mihir Abdalla MD [address] [place] [id number] Referring Physician Cardiology 04/01/21
--- NOTE | 2025-05-15 07:11 | CT_ITS ---
FINAL REPORT TECHNIQUE: Axial images through the abdomen and pelvis were performed without contrast. This study was performed with techniques to keep radiation doses as low as reasonably achievable, (ALARA). Individualized dose reduction techniques using automated exposure control or adjustment of mA and/or kV according to the patient's size were employed. CLINICAL HISTORY: UNILATERAL INGUINAL HERNIA W/O OBSTRUCTION COMPARISON: None FINDINGS: Abdomen: Imaging to the lung bases demonstrates a partially visualized 1.5 cm noncalcified nodule at the left lung base well-seen on image 1 of series 3. The liver parenchyma is homogeneous. The gallbladder is present. The spleen, pancreas, and adrenal are unremarkable. There are large bilateral renal cysts measuring up to 10.3 cm on the right and up to 7.2 cm on the left. No stones are seen. Pelvis: There is extensive sigmoid diverticulosis without evidence of diverticulitis. The appendix is unremarkable. The urinary bladder is decompressed. There is no evidence of inguinal hernia. IMPRESSION: Large renal cysts. Nodule at the left lung base incompletely visualized and highly concerning for neoplasm. Recommend thoracic CT with contrast for further evaluation. No evidence of inguinal hernia. Reviewed, Interpreted and Dictated by Josh Barnett MD Transcribed by Pooja Espana Authenticated and [facility]
== END 2025-05-15 23:59 | disposition home or self-care (01) ==
LOC: RAD 07:06
PROVIDERS: PCP Nurse Practitioner Family; Visit Provider Nurse Practitioner Family
DX: N28.1 Cyst of kidney, acquired (principal); K40.90 Unilateral inguinal hernia, without obstruction or gangrene, not specified as recurrent; R91.1 Solitary pulmonary nodule
CPT/HCPCS: 74176